=== PATIENT | female | born 2005 | race Two or more races ===

== ENCOUNTER 2025-09-02 20:15 | Emergency (ER) | payer MEDICAID, OTHER ==
[~2025-09-02] VITALS: Ht 162.6 cm; Wt 73.4 kg
[2025-09-02 20:19] VITALS: BP 123/86; PULSE 94; RESP 18; TEMP 98.8; O2SAT 100
== END 2025-09-02 23:25 | disposition left against medical advice (07) ==
LOC: ER 20:15
DX: R06.02 Shortness of breath (principal); J45.909 Unspecified asthma, uncomplicated; Z53.21 Procedure and treatment not carried out due to patient leaving prior to being seen by health care provider